=== PATIENT | female | born 2000 | race Caucasian/White ===

== ENCOUNTER 2022-03-03 00:17 | Emergency (ER) | payer BC, SELFPAY ==
[2022-03-03 01:09] VITALS: BP 125/78; PULSE 84; RESP 18; TEMP 36.8; O2SAT 99; BMI 23.0
--- NOTE | 2022-03-03 02:22 | ED.GENADULT ---
HPI - General Adult General Time Seen by Provider: 02:22 Date Seen: 03/03/22 Chief complaint: Head Injury/Pain Stated complaint: might have a concussion, vacuum fell on her. Time Seen by Provider: 03/03/22 02:17 Source: patient and RN notes reviewed Mode of arrival: ambulatory Limitations: no limitations History of Present Illness HPI narrative: 21-year-old female who comes in today for evaluation of a head injury. Patient was bent forward and the handle vacuum diamond cleaner tipped and fell on her head. No loss of conscious. She complains of some nausea, no headache, no vomiting. She has not taken anything for her symptoms yet. Related Data Home Medications Medication Instructions Recorded Confirmed bupropion HCl PO 03/03/22 dextroamphetamine-amphetamine 10 10 mg PO DAILY PRN 03/03/22 03/03/22 mg tablet (Adderall) dextroamphetamine-amphetamine ER 25 mg PO DAILY 03/03/22 03/03/22 25 mg 24hr capsule,extend release (Adderall XR) fluoxetine .ROUTE 03/03/22 Allergies Allergy/AdvReac Type Severity Reaction Status Date / Time No Known Drug Allergies Allergy Verified 03/03/22 01:13 Review of Systems Status of ROS: Reports: 10 or more systems reviewed and unremarkable except as noted in History and below Exam Narrative: Exam Narrative: General: Well-developed and well-nourished, no acute distress Head: Atraumatic and normocephalic Eyes: Pupils are equal reactive, extraocular motions intact, conjunctiva clear ENT: External nose and ears are normal, posterior pharynx without erythema or exudate Neck: No midline cervical tenderness, full spontaneous range of motion the neck, trachea midline, no adenopathy Heart: Regular rate and rhythm no murmurs or thrills Lungs: Clear to auscultation bilaterally without wheezes or crackles Abdomen: Soft, nontender, nondistended with active bowel sounds Musculoskeletal: No tenderness, deformity, or edema Neurologic: Awake, alert, and oriented x3, no gross focal neurologic deficits, cranial nerves intact as tested Psych: Mood and affect are appropriate Skin: No rashes Const: Vital Signs, click to edit/add: Vital Signs - 24 hr 03/03/22 01:09 Temperature 98.2 F Pulse Rate [Right Pulse Oximeter] 84 Respiratory Rate 18 Blood Pressure [Ri ght Upper Arm] 125/78 Pulse Oximetry 99 Oxygen Delivery Me thod Room Air Course Course Hospital Course: Patient seen examined, prior records reviewed. Patient presents today with head injury. Minor head injury with no external signs of trauma. Nausea but no vomiting. No headache. Symptoms unlikely to represent concussion. We discussed sequelae of head injury and patient can be discharged. No indication for head CT. Vital Signs Vital signs: Initial Vital Signs Temperature 98.2 F 03/03/22 01:09 Temperature Source Temporal Artery Scan 03/03/22 01:09 Pulse Rate 84 03/03/22 01:09 Respiratory Rate 18 03/03/22 01:09 Blood Pressure 125/78 03/03/22 01:09 Blood Pressure Mean 93 03/03/22 01:09 Blood Pressure Position Sitting 03/03/22 01:09 Pulse Oximetry 99 03/03/22 01:09 Oxygen Delivery Method 03/03/22 01:09 Vital Signs Temperature 98.2 F 03/03/22 01:09 Pulse Rate 84 03/03/22 01:09 Respiratory Rate 18 03/03/22 01:09 Blood Pressure 125/78 03/03/22 01:09 Pulse Oximetry 99 03/03/22 01:09 Oxygen Delivery Method 03/03/22 01:09 Temperature 98.2 F 03/03/22 01:09 Pulse Rate 84 03/03/22 01:09 Respiratory Rate 18 03/03/22 01:09 Blood Pressure 125/78 03/03/22 01:09 Pulse Oximetry 99 03/03/22 01:09 Oxygen Delivery Method 03/03/22 01:09 Medical Decision Making Medical Records Medical records reviewed: Yes I reviewed the patient's medical records Lab Data Lab results reviewed: Yes I reviewed the patient's lab results Discharge Plan Discharge Prescriptions: No Action dextroamphetamine-amphetamine [Adderall] 10 mg tablet 10 mg PO DAILY PRN dextroamphetamine-amphetamine [Adderall XR] 25 mg capsule,extended release 24hr 25 mg PO DAILY bupropion HCl [Wellbutrin] PO fluoxetine [Prozac] .ROUTE
[2022-03-03 02:40] VITALS: BP 125/78; PULSE 84; RESP 18; TEMP 36.8
[2022-03-03 02:43] VITALS: BP 118/68; PULSE 87; RESP 18; TEMP 36.9; O2SAT 99
== END 2022-03-03 02:45 | disposition home or self-care (01) ==
LOC: ED 02:40
PROVIDERS: Emergency Provider Family Medicine
DX: S09.90XA Unspecified injury of head, initial encounter (principal); W20.8XXA Other cause of strike by thrown, projected or falling object, initial encounter
CPT/HCPCS: 99282; 99283

== ENCOUNTER 2022-06-10 13:52 | Outpatient (CLI) | payer BC, SELFPAY ==
--- NOTE | 2022-06-10 14:00 | CRLHL7_ITS ---
For Patients: As a result of the Century Cures Act, medical imaging exams and procedure reports are released immediately into your electronic medical record. You may view this report before your referring provider. If you have questions, please contact your health care provider. INDICATION: Persistent headaches TECHNIQUE: CT head without contrast. COMPARISON: None. FINDINGS: CSF spaces: Within normal limits for age. Brain parenchyma: The hope-white differentiation is normal. No sign of mass, hemorrhage, or midline shift. Skull base and calvarium: Mucous retention cyst left maxillary sinus. The visualized orbits are grossly unremarkable. No skull fractures. IMPRESSION: Unremarkable noncontrast head CT. Please note that all CT scans at this facility use dose modulation, iterative reconstruction, and/or weight-based dosing when appropriate to reduce radiation dose to as low as reasonably achievable. Dictated by Marquez Justice MD @ 06/10/2022 3:56:08 PM (Electronically Signed)
== END 2022-06-10 13:53 | disposition home or self-care (01) ==
DX: R51.9 Headache, unspecified (principal)
CPT/HCPCS: 70450

== ENCOUNTER 2024-02-17 14:29 | Outpatient (CLI) | payer BC, SELFPAY | END 2024-02-17 14:30 | disposition home or self-care (01) | LOC: NFLDUCREF 14:30 | PROVIDERS: Visit Provider Physician Assistant | DX: R10.31 Right lower quadrant pain (principal) | CPT/HCPCS: 87086 ==